=== PATIENT | female | born 1960 | race Caucasian/White ===

== ENCOUNTER → 2019-10-31 12:02 | Outpatient (BNVA) | payer BC, SELFPAY | PROVIDERS: Family Provider Nurse Practitioner Family; PCP Nurse Practitioner Family; Visit Provider Nurse Practitioner Family | DX: R32 Unspecified urinary incontinence (principal); R53.1 Weakness | CPT/HCPCS: 81001 ==

== ENCOUNTER → 2020-09-10 11:35 | Outpatient (BNVA) | payer BC, SELFPAY | PROVIDERS: Family Provider Nurse Practitioner Family; PCP Nurse Practitioner Family; Visit Provider Nurse Practitioner Family | DX: M19.012 Primary osteoarthritis, left shoulder (principal) | CPT/HCPCS: 73030 ==

== ENCOUNTER 2020-09-27 06:00 | Outpatient (RCR) | payer BC, SELFPAY | END 2020-10-08 23:59 | disposition home or self-care (01) | LOC: WPT 06:00 | PROVIDERS: Family Provider Nurse Practitioner Family; PCP Nurse Practitioner Family; Referring Provider Nurse Practitioner Family; Visit Provider Nurse Practitioner Family | DX: M25.512 Pain in left shoulder (principal); G89.29 Other chronic pain; M19.012 Primary osteoarthritis, left shoulder; R53.1 Weakness | CPT/HCPCS: 87635; 97110; 97163 ==

== ENCOUNTER → 2020-09-27 14:04 | Outpatient (BNVA) | payer BC, SELFPAY | PROVIDERS: Family Provider Nurse Practitioner Family; PCP Nurse Practitioner Family; Visit Provider Nurse Practitioner Family | DX: I10 Essential (primary) hypertension (principal); Z13.6 Encounter for screening for cardiovascular disorders; E55.9 Vitamin D deficiency, unspecified; Z79.899 Other long term (current) drug therapy | CPT/HCPCS: 80053; 80061; 82306; 82607; 83036; 83921; 84443; 85025 ==

== ENCOUNTER 2020-10-01 09:07 | Day surgery (SDC) | payer BC, SELFPAY ==
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
[2020-10-01 09:55] VITALS: BP 141/68; PULSE 61; RESP 18; TEMP 36.1; O2SAT 99
[2020-10-01] MEDS: sodium chloride 0.9% 1,000 ML 30 ML IV (10:27)
[2020-10-01 10:52] VITALS: BP 119/74; PULSE 75; RESP 18; O2SAT 93
[2020-10-01 11:07] VITALS: BP 142/91; PULSE 62; RESP 18; O2SAT 95
--- NOTE | 2020-10-01 13:09 | P.HP_ITS ---
Same Day Surgery H&P Indication for Procedure/HPI DATE OF PROCEDURE: October 01, 2020 CHIEF COMPLAINT/INDICATIONFOR SURGICAL PROCEDURE: Dysphagia PREOP DIAGNOSIS: dysphagia PLANNED PROCEDRUE: Operation Date: 10/01/20 10:15 Proposed Procedures p EGD Dilation W/ Bougie 22255 R13.10(Not Applicable) - Clifton Hernandez MD Medications/Allergies* Home Medications Medication Instructions Recorded Confirmed Type acetaminophen 500 mg tablet 500 mg PO Q4H PRN tab 07/04/19 10/01/20 History docusate sodium 100 mg capsule 100 mg PO DAILY PRN 07/04/19 10/01/20 History multivitamin 1 tab PO DAILY 07/04/19 10/01/20 History Allergies/Adverse Reactions Allergy/AdvReac Type Severity Reaction Status Date / Time lisinopril Allergy Cough Verified 09/24/20 14:16 Pertinent History/Comorbid Conditions* Medical History (Updated 09/11/20 @ 23:01 by MARK Carlin) Bilateral primary osteoarthritis of knee Chronic shoulder pain Dysphagia Essential hypertension Generalized weakness Hypertension screen Intervertebral disc disorder with radiculopathy of lumbosacral region Medication management Morbid obesity with BMI of 45.0-49.9, adult Multilevel degenerative disc disease Osteoarthritis of left shoulder Osteoarthritis, chronic Urinary incontinence Vitamin D deficiency Surgical History (Updated 07/19/19 @ 13:33 by MARK Carlin) History of cervical spinal surgery 1999 [facility] History of heart artery stent 05/23/2018 RCA History of hysterectomy (~2002) History of surgery on right wrist History of tonsillectomy and adenoidectomy Family History (Updated 07/04/19 @ 14:07 by Lilibeth Barrientos APRN) Cancer Mother Cervical Hypertension Father Mother Stroke Father Denies family history of Diabetes Chronic kidney disease (CKD) Lung disease Social History Smoking and tobacco status: former smoker Alcohol intake: never Caregiver/support person: Yes (son and granddaughter) Lives independently: Yes Household members: family Housing: House Current occupational status: retired History of recent travel: No Pertinent Exam Findings alert, oriented x 3, clear to auscultation bilaterally, regular rate & rhythm, operative site marked and procedure specific exam findings Recommendations Surgery/Procedure today Coding Level of Care Code Acute [employer] Coater Machine for Brian Aceves
--- NOTE | 2020-10-01 17:51 | ANE.PACU2 ---
Inpatient post-anesthesia follow up: Airway intact: Yes Vital signs: Temperature 97 F Pulse Rate 62 Respiratory Rate 18 Blood Pressure 142/91 Pulse Oximetry 95 Oxygen Delivery Me thod Room Air Oxygen Flow Rate Fraction of Inspir ed Oxygen Hydration adequate: Yes Nausea and vomiting: No Pain level: 3 Mental status: Baseline
[2020-10-02 05:49] LABS: H. Pylori / CLO Test Negative
== END 2020-10-01 11:20 | disposition home or self-care (01) ==
PROVIDERS: Family Provider Nurse Practitioner Family; PCP Nurse Practitioner Family; Visit Provider Internal Medicine
DX: R13.10 Dysphagia, unspecified (principal); K22.2 Esophageal obstruction; K44.9 Diaphragmatic hernia without obstruction or gangrene; K21.00 Gastro-esophageal reflux disease with esophagitis, without bleeding; K29.70 Gastritis, unspecified, without bleeding; M17.0 Bilateral primary osteoarthritis of knee; I10 Essential (primary) hypertension; E66.01 Morbid (severe) obesity due to excess calories; Z68.42 Body mass index [BMI] 45.0-49.9, adult; E55.9 Vitamin D deficiency, unspecified; Z87.891 Personal history of nicotine dependence; G47.30 Sleep apnea, unspecified; I25.10 Atherosclerotic heart disease of native coronary artery without angina pectoris; I25.2 Old myocardial infarction
CPT/HCPCS: 43239; 87077; 96360; J2704; J7030

== ENCOUNTER 2020-10-09 06:00 | Outpatient (RCR) | payer BC, SELFPAY | END 2020-11-07 23:59 | disposition home or self-care (01) | LOC: WPT 06:00 | PROVIDERS: Family Provider Nurse Practitioner Family; PCP Nurse Practitioner Family; Referring Provider Nurse Practitioner Family; Visit Provider Nurse Practitioner Family | DX: M25.512 Pain in left shoulder (principal); G89.29 Other chronic pain; M19.012 Primary osteoarthritis, left shoulder; R53.1 Weakness | CPT/HCPCS: 97110; 97112; 97140 ==

== ENCOUNTER 2020-11-08 06:00 | Outpatient (RCR) | payer BC, SELFPAY | END 2020-12-08 23:59 | disposition home or self-care (01) | LOC: WPT 06:00 | PROVIDERS: Family Provider Nurse Practitioner Family; PCP Nurse Practitioner Family; Referring Provider Nurse Practitioner Family; Visit Provider Nurse Practitioner Family | DX: M25.512 Pain in left shoulder (principal); G89.29 Other chronic pain; M19.012 Primary osteoarthritis, left shoulder; R53.1 Weakness | CPT/HCPCS: 97110 ==

== ENCOUNTER → 2020-12-17 11:53 | Outpatient (BNVA) | payer BC, SELFPAY | PROVIDERS: Family Provider Nurse Practitioner Family; PCP Nurse Practitioner Family; Visit Provider Nurse Practitioner Family | DX: I10 Essential (primary) hypertension (principal); Z79.899 Other long term (current) drug therapy; R32 Unspecified urinary incontinence; R60.0 Localized edema; E78.2 Mixed hyperlipidemia; M19.012 Primary osteoarthritis, left shoulder; M17.0 Bilateral primary osteoarthritis of knee; R53.1 Weakness; M51.17 Intervertebral disc disorders with radiculopathy, lumbosacral region; Z95.5 Presence of coronary angioplasty implant and graft; E66.01 Morbid (severe) obesity due to excess calories; Z68.42 Body mass index [BMI] 45.0-49.9, adult | CPT/HCPCS: 80053; 83036; 83735; 85025 ==

== ENCOUNTER 2022-07-10 17:21 | Emergency (ER) | payer BC, SELFPAY ==
[2022-07-10 17:47] VITALS: BP 123/77; PULSE 61; RESP 18; TEMP 36.7; O2SAT 97
[2022-07-10 19:44] LABS: Basophils # 0.1 10^3/uL (0.0-0.1); Basophils % 0.5 %; Eosinophils # 0.5 10^3/uL (0.0-0.8); Hematocrit 39.1 % (37.0-47.0); Hemoglobin 12.3 g/dL (11.5-15.3); Lymphocytes # 2.4 10^3/uL (0.8-4.8); Lymphocytes % 24.3 %; Mean Corpuscular HGB Conc 31.5 g/dL (30.0-36.0); Mean Corpuscular Hemoglobin 29.7 pg (28.0-34.0); Mean Corpuscular Volume 94.4 fl (81-99); Mean Platelet Volume 10.2 fL (7.4-10.4); Monocytes # 0.5 10^3/uL (0.2-0.9); Monocytes % 5.5 %; Neutrophils # 6.25 10^3/uL (1.8-7.7); Neutrophils % 63.5 %; Nucleated Red Blood Cells % 0 %; Platelet Count 383 10^3/cmm (130-400); Red Blood Count 4.14 10^6/uL (4.1-5.3); Red Cell Distribution Width 13.2 % (12.1-15.1); White Blood Count 9.8 10^3/uL (4.0-10.0)
[2022-07-10 20:02] VITALS: BP 131/80; PULSE 60; RESP 18; O2SAT 97
[2022-07-10 20:10] LABS: Alanine Aminotransferase 11 U/L (0-33); Albumin Level 3.2 g/dL (3.5-5.2); Alkaline Phosphatase 80 U/L (35-105); Anion Gap 14.1 (5-19); Aspartate Amino Transferase 10 U/L (0-32); Blood Urea Nitrogen 11 mg/dL (8-23); Calcium 9.1 mg/dL (8.5-10.5); Carbon Dioxide 28 mmol/L (22-29); Chloride 99 mmol/L (98-107); Globulin 3.8 g/dL (1.3-4.6); Glomerular Filtration Rate 84.8 mL/min (90-130); Glucose 163 mg/dL (65-115); Osmolality Calculated 287 mOsm/kg (285-295); Potassium 4.1 mmol/L (3.5-5.1); Sodium 137 mmol/L (136-145); Total Bilirubin 0.2 mg/dL (0.15-1.2)
--- NOTE | 2022-07-10 21:35 | ED_ITS ---
Documented by User: Angélica Castillo MD 07/10/22 23:06 HPI - Skin/Abscess/Foreign Bdy General: Chief complaint: Skin/Abscess/Foreign Body Stated complaint: abscess sent by PCP Time Seen by Provider: 07/10/22 18:51 Source: patient History of Present Illness: 61-year-old female who presents with pain and swelling in her groin area. This started this past Thursday, 4 days ago. She had fevers on Thursday and Thursday. Thursday she started antibiotics, clindamycin so she has taken a total of 48 hours of oral clindamycin. She states that has started to drain a small amount but continues to be very painful and swollen. She has had associated increased thirst and increased frequency of urination. She has had chills and sweats as well. No prior history of MRSA infections. Review of Systems General: Reports: Other (See HPI) [facility] ED PFSH: Medical History Bilateral lower extremity edema Bilateral primary osteoarthritis of knee Chronic shoulder pain Dysphagia Essential hypertension Generalized weakness Hypertension screen Intervertebral disc disorder with radiculopathy of lumbosacral region Medication management Medication management Mixed hyperlipidemia Morbid obesity with BMI of 45.0-49.9, adult Multilevel degenerative disc disease Osteoarthritis of left shoulder Osteoarthritis, chronic Urinary incontinence Vitamin D deficiency Surgical History History of cervical spinal surgery 1999 [facility] History of heart artery stent 05/23/2018 RCA History of hysterectomy (~2002) History of surgery on right wrist History of tonsillectomy and adenoidectomy Family History Father Stroke Hypertension Mother Cancer Cervical Hypertension Denies family history of Diabetes Chronic kidney disease (CKD) Lung disease Physical Exam Const: OTHER: Patient appears uncomfortable due to the pain HENMT: OTHER: Conjunctiva are normal. Mucous membranes are moist. Neck/C-Spine: OTHER: Trachea is midline Resp: OTHER: Normal effort, equal breath sounds bilaterally Cardio: COMMON NORMALS: regular rate and regular rhythm RATE: regular rate RHYTHM: regular rhythm GI: OTHER: Soft, nontender : GENITAL IMAGES (FEMALE): 1. Large indurated area in the right labia majora and mons pubis region with an area that is open and draining purulent material. This area is very tender. There is some mild erythema and induration extending onto the abdominal wall Extremity: OTHER: No deformity noted Procedures Abscess I/D Site: other (labia majora) Local Anesthetic: lidocaine 1% Amount of anesthesia used (mL): 10 Technique: incised with #11 blade Amount of fluid expressed (mL): 5 Packing used?: iodoform Complications: pain Course ED course: Area of labial abscess incised and drained with only a small amount of purulent bloody drainage. Culture has been sent. Concern with the extent of cellulitis and induration that there could be necrotizing fasciitis or Waldo's gangrene. We will proceed with CT of the pelvis. We will give the patient IV Rocephin and IV doxycycline. Culture has been sent. The patient's been given IV Dilaudid for pain with some improvement. Vital Signs: Vital signs: Vital Signs Temperature 98.1 F 07/10/22 17:47 Pulse Rate 60 07/10/22 20:02 Respiratory Rate 18 07/10/22 20:02 Blood Pressure 131/80 07/10/22 20:02 Pulse Oximetry 97 07/10/22 20:02 Oxygen Delivery Me thod 07/10/22 20:02 MDM - Skin/Abscess/Foreign Bdy Medicial Decision Making 61-year-old female who presents with a right labia majora abscess with associated cellulitis. Will start on IV, obtain labs. We will give her IV Dilaudid for pain. We will plan for an incision and drainage with local anesthetic and obtain cultures at that time. 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 Negative for extension into the deep pelvis. Laboratory Results WBC 9.8 10^3/uL (4.0-10.0) 07/10/22 19:29 RBC 4.14 10^6/uL (4.1-5.3) 07/10/22 19:29 Hgb 12.3 g/dL (11.5-15.3) 07/10/22 19: Hct 39.1 % (37.0-47.0) 07/10/22: MCV 94.4 fl (81-99) 07/10/22: MCH 29.7 pg (28.0-34.0) 07/10/22 19: MCHC 31.5 g/dL (30.0-36.0) 07/10/22: RDW 13.2 % (12.1-15.1) 07/10/22: Plt Count 383 10^3/cmm (130-400) 07/10/22: MPV 10.2 fL (7.4-10.4) 07/10/22: Neut % (Auto) 63.5 % 07/10/22: Lymph % (Auto) 24.3 % 07/10/22: [place] % (Auto) 5.5 % 07/10/22: Eos % (Auto) 5.0 % 07/10/22: Baso % (Auto) 0.5 % 07/10/22: Neut # (Auto) 6.25 10^3/uL (1.8-7.7) 07/10/22: Lymph # (Auto) 2.4 10^3/uL (0.8-4.8) 07/10/22: [place] # (Auto) 0.5 10^3/uL (0.2-0.9) 07/10/22 Eos # (Auto) 0.5 10^3/uL (0.0-0.8) 07/10/22 Baso # (Auto) 0.1 10^3/uL (0.0-0.1) 07/10/22: Nucleated RBC % (auto) 0 % 07/10/22 Nucleated RBCs # 0.0 /100WBC 07/10/22: ESR 45 mm/hr (0-15) H 07/10/22 19:40 Sodium 137 mmol/L (136-145) 07/10/22: Potassium 4.1 mmol/L (3.5-5.1) 07/10/22: Chloride 99 mmol/L (98-107) 07/10/22 19:29 Carbon Dioxide 28 mmol/L (22-29) 07/10/22 19:29 Anion Gap 14.1 (5-19) 07/10/22 19:29 BUN 11 mg/dL (8-23) 07/10/22 19:29 Creatinine 0.7 mg/dL (0.5-0.9) 07/10/22 19:29 GFR Calculation 84.8 mL/min (90-130) L 07/10/22 19:29 Glucose 163 mg/dL (65-115) H 07/10/22 19:29 Calculated Osmolality 287 mOsm/kg (285-295) 07/10/22 19:29 Calcium 9.1 mg/dL (8.5-10.5) 07/10/22 19:29 Total Bilirubin 0.2 mg/dL (0.15-1.2) 07/10/22 19:29 AST 10 U/L (0-32) 07/10/22 19:29 ALT 11 U/L (0-33) 07/10/22 19:29 Alkaline Phosphatase 80 U/L (35-105) 07/10/22 19:29 C-Reactive Protein 157.2 mg/L (0.0-4.9) H 07/10/22 19:40 Total Protein 7.0 g/dL (6.6-8.7) 07/10/22 19:29 Albumin 3.2 g/dL (3.5-5.2) L 07/10/22 19:29 Globulin 3.8 g/dL (1.3-4.6) 07/10/22 19:29 Discharge Plan Discharge Patient Disposition: Xfer Short-Term Hosp Clinical Impression: Cellulitis of labia majora, Abscess of labia majora Condition: Stable Referrals: Jersey Quinonez FNP [Primary Care Provider] - Coding Level of Care Code ED [employer] Fscm Developer for Chg Fwd Documented by User: Gina Tran MD 03/03/23 01:22 HPI - Skin/Abscess/Foreign Bdy General: Chief complaint: Skin/Abscess/Foreign Body Stated complaint: abscess sent by PCP Time Seen by Provider: 07/10/22 18:51 [facility] ED 2 PFSH: Medical History Bilateral lower extremity edema Bilateral primary osteoarthritis of knee Chronic shoulder pain Dysphagia Essential hypertension Generalized weakness Hypertension screen Intervertebral disc disorder with radiculopathy of lumbosacral region Medication management Medication management Mixed hyperlipidemia Morbid obesity with BMI of 45.0-49.9, adult Multilevel degenerative disc disease Osteoarthritis of left shoulder Osteoarthritis, chronic Urinary incontinence Vitamin D deficiency Surgical History History of cervical spinal surgery 1999 [facility] History of heart artery stent 05/23/2018 RCA History of hysterectomy (~2002) History of surgery on right wrist History of tonsillectomy and adenoidectomy Family History Father Stroke Hypertension Mother Cancer Cervical Hypertension Denies family history of Diabetes Chronic kidney disease (CKD) Lung disease Physical Exam : GENITAL IMAGES (FEMALE): 1. Large indurated area in the right labia majora and mons pubis region with an area that is open and draining purulent material. This area is very tender. There is some mild erythema and induration extending onto the abdominal wall Course Vital Signs: Vital signs: Vital Signs Temperature 98.1 F 07/10/22 17:47 Pulse Rate 60 07/10/22 20:02 Respiratory Rate 18 07/10/22 20:02 Blood Pressure 131/80 07/10/22 20:02 Pulse Oximetry 97 07/10/22 20:02 Oxygen Delivery Me thod 07/10/22 20:02 MDM - Skin/Abscess/Foreign Bdy Medicial Decision Making 61-year-old female who presents with a right labia majora abscess with associated cellulitis. Will start on IV, obtain labs. We will give her IV Dilaudid for pain. We will plan for an incision and drainage with local anesthetic and obtain cultures at that time. 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 Negative for extension into the deep pelvis. Laboratory Results WBC 9.8 10^3/uL (4.0-10.0) 07/10/22 19: RBC 4.14 10^6/uL (4.1-5.3) 07/10/22 19: Hgb 12.3 g/dL (11.5-15.3) 07/10/22: Hct 39.1 % (37.0-47.0) 07/10/22 19: MCV 94.4 fl (81-99) 07/10/22 19: MCH 29.7 pg (28.0-34.0) 07/10/22 19: MCHC 31.5 g/dL (30.0-36.0) 07/10/22 19: RDW 13.2 % (12.1-15.1) 07/10/22 19: Plt Count 383 10^3/cmm (130-400) 07/10/22 19: MPV 10.2 fL (7.4-10.4) 07/10/22 19: Neut % (Auto) 63.5 % 07/10/22 19: Lymph % (Auto) 24.3 % 07/10/22 19: [place] % (Auto) 5.5 % 07/10/22 19:29 Eos % (Auto) 5.0 % 07/10/22 19: Baso % (Auto) 0.5 % 07/10/22 19: Neut # (Auto) 6.25 10^3/uL (1.8-7.7) 07/10/22 19: Lymph # (Auto) 2.4 10^3/uL (0.8-4.8) 07/10/22 19: [place] # (Auto) 0.5 10^3/uL (0.2-0.9) 07/10/22 19:29 Eos # (Auto) 0.5 10^3/uL (0.0-0.8) 07/10/22 19: Baso # (Auto) 0.1 10^3/uL (0.0-0.1) 07/10/22 19: Nucleated RBC % (auto) 0 % 07/10/22 19: Nucleated RBCs # 0.0 /100WBC 07/10/22 19: ESR 45 mm/hr (0-15) H 07/10/22 19:40 Sodium 137 mmol/L (136-145) 07/10/22 19: Potassium 4.1 mmol/L (3.5-5.1) 07/10/22 19: Chloride 99 mmol/L (98-107) 07/10/22: Carbon Dioxide 28 mmol/L (22-29) 07/10/22: Anion Gap 14.1 (5-19) 07/10/22 19: BUN 11 mg/dL (8-23) 07/10/22 19: Creatinine 0.7 mg/dL (0.5-0.9) 07/10/22 19: GFR Calculation 84.8 mL/min (90-130) L 07/10/22 19: Glucose 163 mg/dL (65-115) H 07/10/22: Calculated Osmolality 287 mOsm/kg (285-295) 07/10/22: Calcium 9.1 mg/dL (8.5-10.5) 07/10/22: Total Bilirubin 0.2 mg/dL (0.15-1.2) 07/10/22 19: AST 10 U/L (0-32) 07/10/22 19: ALT 11 U/L (0-33) 07/10/22 19:29 Alkaline Phosphatase 80 U/L (35-105) 07/10/22 19: C-Reactive Protein 157.2 mg/L (0.0-4.9) H 07/10/22 19:40 Total Protein 7.0 g/dL (6.6-8.7) 07/10/22 19: Albumin 3.2 g/dL (3.5-5.2) L 07/10/22 19: Globulin 3.8 g/dL (1.3-4.6) 07/10/22 19:29 Discharge Plan Discharge Patient Disposition: Xfer Short-Term Hosp Clinical Impression: Cellulitis of labia majora, Abscess of labia majora Condition: Stable Referrals: Jersey Quinonez FNP [Primary Care Provider] - Coding Level of Care Code ED [employer] Fscm Developer for Brian Aceves
[2022-07-10] MEDS: ondansetron 2 mg/ML SDV 2 mL 4 MG IVP (21:51)
[2022-07-10] MEDS: lidocaine-epi 1% 20 mL INJ INJECTION (21:51)
[2022-07-10] MEDS: HYDROmorphone 1 mg/mL INJ 1 mL 0.5 MG IVP ×2 (21:51→23:12)
--- NOTE | 2022-07-10 22:58 | CTR_ITS ---
PROCEDURE INFORMATION: Exam: CT Pelvis With Contrast Exam date and time: 07/10/2022 11:15 PM Age: 61 years old Clinical indication: Prior surgery; Surgery type: Hysterectomy; Patient HX: Labial abscess with drainage. ; Additional info: Necrozing fasciitis labia TECHNIQUE: Imaging protocol: Computed tomography of the pelvis with contrast. Radiation optimization: All CT scans at this facility use at least one of these dose optimization techniques: automated exposure control; mA and/or kV adjustment per patient size (includes targeted exams where dose is matched to clinical indication); or iterative reconstruction. Contrast material: OMNI 350; Contrast volume: 100 ml; Contrast route: INTRAVENOUS (IV); REPORTING DATA: Count of CT and Cardiac NM exams in prior 12 months: This patient has received 0 known CTs and 0 known cardiac nuclear medicine studies in the 12 months prior to the current study. COMPARISON: No relevant prior studies available. RADIATION DOSE METRICS: Total DLP (mGy-cm): 1074.7 FINDINGS: Stomach and bowel: Visualized small bowel and colon are unremarkable. Appendix: No evidence of appendicitis. Intraperitoneal space: Unremarkable. No free air. No significant fluid collection. Lymph nodes: Unremarkable. No enlarged lymph nodes. Urinary bladder: Normal. No mass. Reproductive: Normal as visualized. Bones/joints: Unremarkable. No acute fracture. No dislocation. 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 Negative for extension into the deep pelvis.
[2022-07-10 23:06] LABS: Erythrocyte Sedimentation Rate 45 mm/hr (0-15)
[2022-07-10] MEDS: cefTRIAXone 2,000 MG in sodium chloride 0.9% (plus) 50 ML 100 MG IV (23:12)
[2022-07-10 23:21] LABS: C Reactive Protein 157.2 mg/L (0.0-4.9)
[2022-07-10] MEDS: iohexol 350 mg/mL 500 mL Btl (per mL) IV (23:26)
[2022-07-11] MEDS: doxycycline 100 MG in sodium chloride 0.9% (plus) 100 ML IV
[2022-07-11] MEDS: vancomycin 1,000 MG in sodium chloride 0.9% 250 ML 250 MG IV (01:04)
[2022-07-11 02:15] VITALS: BP 115/51; RESP 18; O2SAT 93
[2022-07-11 02:31] VITALS: BP 105/58; O2SAT 91
--- NOTE | 2022-07-13 14:40 | PC.NURSE ---
results called from Luis Manuel with [facility] regarding vaginal wound culture taken on 07/10/22. positive for MRSA. pt was transferred to [facility]. Results called to DOLORES Garcia, nurse taking care of pt at [facility]. Results faxed to facility
== END 2022-07-11 02:32 | disposition short-term general hospital (02) ==
PROVIDERS: Emergency Medicine; Nurse Practitioner Family; Emergency Provider Emergency Medicine; PCP Nurse Practitioner Family
DX: N76.2 Acute vulvitis (principal); N76.4 Abscess of vulva; I10 Essential (primary) hypertension; E78.2 Mixed hyperlipidemia
CPT/HCPCS: 36415; 72193; 80053; 85025; 85651; 86140; 87070; 87077; 87186; 96365; 96367; 96375; 96376; 99285; J0696; J1170; J2405; J3370; J3490; J7050; Q9967

== ENCOUNTER 2022-11-18 06:00 | Outpatient (RCR) | payer BC, SELFPAY | END 2022-12-08 23:59 | disposition home or self-care (01) | LOC: SOT 06:00 | PROVIDERS: Visit Provider Registered Nurse | DX: Z47.89 Encounter for other orthopedic aftercare (principal) | CPT/HCPCS: 97167 ==

== ENCOUNTER 2023-02-17 06:00 | Outpatient (RCR) | payer BC, SELFPAY | END 2023-03-10 23:59 | disposition home or self-care (01) | LOC: WPT 06:00 | PROVIDERS: Visit Provider Registered Nurse | DX: R53.1 Weakness (principal); R53.81 Other malaise | CPT/HCPCS: 97110; 97112; 97163; 97530 ==

== ENCOUNTER 2023-03-11 06:00 | Outpatient (RCR) | payer BC, SELFPAY | END 2023-04-09 23:59 | disposition home or self-care (01) | LOC: WPT 06:00 | PROVIDERS: Visit Provider Registered Nurse | DX: R53.1 Weakness (principal) | CPT/HCPCS: 97110; 97112; 97530 ==

== ENCOUNTER 2023-04-10 06:00 | Outpatient (RCR) | payer BC, SELFPAY | END 2023-05-10 23:59 | disposition home or self-care (01) | LOC: WPT 06:00 | PROVIDERS: Visit Provider Registered Nurse | DX: R53.1 Weakness (principal) | CPT/HCPCS: 97110; 97112; 97530 ==